=== PATIENT | male | born 1965 | race Hispanic/Latino ===

== ENCOUNTER 2016-09-15 03:37 | Inpatient (IN) | payer OTHER ==
[2016-09-15 03:49] VITALS: BMI 23.0
--- NOTE | 2016-09-15 04:06 | ED PDOC ---
Arrival/HPI - General Historian: Patient - History of Present Illness Time/Duration: Prior to Arrival Symptom Onset: Sudden Symptom Course: Worsening Context: Home <Hermila Alarcon - Last Filed: 09/15/16 06:05> <Sang Mederos - Last Filed: 09/15/16 06:29> - General Time Seen by Provider: 09/15/16 03:45 - History of Present Illness Narrative History of Present Illness (Text): 09/15/16 04:01 50 yo male with PMH of HIV/AIDS adn tachycardia presented to emergency department with abd pain. Patient states the pain started in the afternoon. He believed it to be due to constipation and took milk of magnesium. His last BM was yesterday morning. He reports 3 episodes of non bloody vomiting. He reports shortness of breath starting a few hours before arrival to emergency department. He also reports diaphoresis. He denies chest pain, headache, urinary symptoms. PMD: none (Hermila Alarcon) Past Medical History - Provider Review Nursing Documentation Reviewed: Yes - Infectious Disease Hx of Infectious Diseases: None - Cardiac Hx Hypertension: Yes Hx Hypotension: No - Pulmonary Hx Respiratory Disorders: Yes Hx Sleep Apnea: Yes - Neurological Other/Comment: Insomnia - HEENT Hx HEENT Disorder: Yes (eyeglases) - Hematological/Oncological Hx Blood Disorders: Yes Hx AIDS: Yes - Musculoskeletal/Rheumatological Hx Falls: No - Gastrointestinal Hx Gastroesophageal Reflux: Yes - Psychiatric Hx Substance Use: No - Surgical History Hx Orthopedic Surgery: Yes (left mininscus) - Anesthesia Hx Anesthesia Reactions: No Hx Malignant Hyperthermia: No <Hermila Alarcon - Last Filed: 09/15/16 06:05> Family/Social History - Physician Review Nursing Documentation Reviewed: Yes Family/Social History: CAD/LA (father) Smoking Status: Former Smoker Hx Alcohol Use: Yes Frequency of alcohol use: Socially Hx Substance Use: No <Hermila Alarcon - Last Filed: 09/15/16 06:05> Allergies/Home Meds <Hermila Alarcon - Last Filed: 09/15/16 06:05> <Sang Mederos - Last Filed: 09/15/16 06:29> Allergies/Adverse Reactions: Allergies No Known Allergies Allergy (Verified 01/31/16 22:30) Review of Systems - Review of Systems Constitutional: Normal, Fevers. absent: Fatigue Eyes: Normal. absent: Vision Changes ENT: Normal. absent: Sore Throat, Rhinorrhea, Sinus Congestion Respiratory: SOB. absent: Cough Cardiovascular: Normal. absent: Chest Pain, Palpitations, Edema, Calf Pain Gastrointestinal: Abdominal Pain, Constipation, Vomiting. absent: Diarrhea, Nausea Genitourinary Male: Normal. absent: Dysuria, Frequency Musculoskeletal: Normal. absent: Arthralgias, Myalgias Skin: Normal. absent: Rash, Pruritis Neurological: Normal. absent: Headache, Dizziness Endocrine: Diaphoresis Hemo/Lymphatic: Normal. absent: Easy Bleeding, Easy Bruising Psychiatric: Normal <Hermila Alarcon - Last Filed: 09/15/16 06:05> Physical Exam - Systems Exam Head: Present: Atraumatic, Normocephalic Pupils: Present: PERRL. No: Non-Reactive, Pinpoint Extroacular Muscles: Present: EOMI Conjunctiva: Present: Normal Mouth: Present: Moist Mucous Membranes Neck: Present: Normal Range of Motion Respiratory/Chest: Present: Clear to Auscultation, Good Air Exchange. No: Respiratory Distress, Accessory Muscle Use, Wheezes, Rales, Rhonchi, Tachypneic Cardiovascular: Present: Regular Rate and Rhythm, Normal S1, S2, Tachycardic. No: Murmurs, Bradycardic Abdomen: Present: Tenderness, Normal Bowel Sounds, Guarding. No: Distention, Peritoneal Signs Rectal: Present: Other (no fecal impaction ). No: Occult Blood, Rectal Tenderness, Gross Blood, Melena, Hemorrhoids Back: Present: Normal Inspection Upper Extremity: Present: Normal Inspection. No: Cyanosis, Edema, Tenderness, Swelling Lower Extremity: Present: Normal Inspection. No: Edema, Tenderness, Swelling Neurological: Present: GCS=15, CN II-XII Intact, Speech Normal Skin: Present: Warm, Dry, Normal Color, Diaphoretic. No: Rashes Psychiatric: Present: Alert, Oriented x 3, Normal Insight, Normal Concentration <Hermila Alarcon - Last Filed: 09/15/16 06:05> Medical Decision Making <Hermila Alarcon - Last Filed: 09/15/16 06:05> <Sang Mederos - Last Filed: 09/15/16 06:29> ED Course and Treatment: 09/15/16 04:15 Impression: 50 yo male with PMH of HIV/AIDS presented to emergency department with abd pain. Differential Diagnosis included but are not limited to: - SBO Plan: - CBC, CMP - lipase - CT abd/pelvis - zofran - Reassess and disposition Progress Notes: 09/15/16 05:53 - CT abd/pel FINDINGS: Limitations: Lack of intravenous contrast. Motion artifact - mild. Lower thorax: Hyperinflation of lung bases. Minimal atelectasis/scarring. Probable small hiatal hernia. ABDOMEN: Liver: Unremarkable. Gallbladder and bile ducts: No calcified stones. No ductal dilation. Pancreas: Unremarkable. No ductal dilation. Spleen: No splenomegaly. Adrenals: No mass. Kidneys and ureters: No obstructing stones. No hydronephrosis. Stomach and bowel: Multiple mild to moderately dilated loops of small bowel throughout abdomen. Stool formation within distal small bowel. Mild stranding/haziness within associated small bowel mesentery. Segmental areas of underdistention of LEFT colon. No definite mural thickening. Appendix: Normal caliber. No inflammation. PELVIS: Bladder: Unremarkable. No stones. Reproductive: Unremarkable as visualized. ABDOMEN and PELVIS: Intraperitoneal space: Trace free fluid within abdomen and pelvis. No free air. Bones/joints: No acute fracture. Soft tissues: Unremarkable. Vasculature: Mild atherosclerotic disease. No aneurysm. Lymph nodes: No pathologically enlarged lymph nodes. IMPRESSION: 1. Findings suggestive of small bowel obstruction. 2. Incidental/non-acute findings are described above. 09/15/16 06:05 - patient states that the pain is intermittent. Results of CT abd/pelvis was discussed with patient. - Spoke with medical librarian Dr. Bernabe and hospitalist Dr. Esquivel, patient is accepted for admission. Spoke with residential field manager, Dr. Plasencia, he agreed to evaluate patient. Patient was informed that he will be admitted, he is agreeable. (Hermila Alarcon) Patient seen and examined with resident. Came up with treatment and disposition plan with resident. (Sang Mederos) - Lab Interpretations Lab Results: 09/15/16 04:30 09/15/16 04:30 Lab Results 09/15/16 04:30: Sodium 139, Potassium 3.8, Chloride 95 L, Carbon Dioxide 28, Anion Gap 20, BUN 18, Creatinine 0.9, Est GFR ( Amer) > 60, Est GFR (Non- Af Amer) > 60, Random Glucose 138 H, Calcium 11.1 H, Total Bilirubin 1.3, AST 28 , ALT 34, Alkaline Phosphatase 108, Total Protein 9.6 H, Albumin 5.2 H, Globulin 4.3, Albumin/Globulin Ratio 1.2, Lipase 52 09/15/16 04:30: WBC 10.8 D, RBC 4.62, Hgb 16.6, Hct 46.8, MCV 101.3, MCH 35.9 H , MCHC 35.5, RDW 13.0, Plt Count 245, MPV 9.3, Gran % 72.3 H, Lymph % (Auto) 20.5 L, Wharton % (Auto) 6.7 H, Eos % (Auto) 0.3 L, Baso % (Auto) 0.2, Gran # 7.79 H, Lymph # 2.2, Wharton # 0.7 H, Eos # 0.0, Baso # 0.02 - RAD Interpretation Radiology Orders: 09/15/16 04:00 ABD & PELVIS W/O PO OR IV CONT [CT] Stat - Medication Orders Current Medication Orders: Piperacillin Sod/Tazobactam Sod (Zosyn 4.5 Gm In Ns 100ml) 4.5 gm in 100 mls @ 200 mls/hr IVPB STAT STA PRN Reason: Protocol Stop: 09/15/16 06:40 Discontinued Medications Ondansetron HCl (Zofran Inj) 4 mg IVP STAT STA Stop: 09/15/16 04:11 Last Admin: 09/15/16 04:39 Dose: 4 mg Disposition/Present on Arrival - Present on Arrival History of DVT/PE: No History of Uncontrolled Diabetes: No Urinary Catheter: No History of Decub. Ulcer: No History Surgical Site Infection Following: None <Hermila Alarcon - Last Filed: 09/15/16 06:05> - Present on Arrival Any Indicators Present on Arrival: No - Disposition Have Diagnosis and Disposition been Completed?: Yes Disposition Time: 06:28 Patient Plan: Admission <Sang Mederos - Last Filed: 09/15/16 06:29> - Disposition Diagnosis: Small bowel obstruction Disposition: HOSPITALIZED Condition: FAIR
[2016-09-15 04:49] LABS: ADD MANUAL DIFF? NO
[2016-09-15 04:59] LABS: BASO # 0.02 K/mm3 (0.0-2.0); BASO % 0.2 % (0.0-3.0); EOS % 0.3 % (1.5-5.0); GRAN # 7.79 (1.4-6.5); GRAN % 72.3 % (50.0-68.0); HEMATOCRIT 46.8 % (42.0-52.0); LYMPH # 2.2 (1.2-3.4); LYMPH % 20.5 % (22.0-35.0); MEAN CELL VOLUME 101.3 fL (80.0-105.0); MEAN CORPUSCULAR HEMOGLOBIN 35.9 pg (25.0-35.0); MEAN CORPUSCULAR HGB CONC 35.5 g/dl (31.0-37.0); MEAN PLATELET VOLUME 9.3 fl (7.0-11.0); MONO # 0.7 (0.1-0.6); MONO % 6.7 % (1.0-6.0); PLATELET COUNT 245 10^3/uL (120.0-450.0); WHITE BLOOD COUNT 10.8 10^3/ul (4.5-11.0)
[2016-09-15 05:08] LABS: ALB/GLOB RATIO 1.2 (1.1-1.8); ALKALINE PHOSPHATASE 108 U/L (38-133); ALT/SGPT 34 U/L (7-56); AST/SGOT 28 U/L (15-59); BILIRUBIN,TOTAL 1.3 mg/dL (0.2-1.3); BLOOD UREA NITROGEN 18 mg/dL (7-21); CALCIUM 11.1 mg/dL (8.4-10.5); CARBON DIOXIDE 28 mmol/L (21-33); CHLORIDE 95 mmol/L (98-107); GFR AFRICAN-AMERICAN > 60; GLUCOSE,RANDOM 138 mg/dL (70-110); LIPASE 52 U/L (23-300); POTASSIUM 3.8 mmol/L (3.6-5.0); SODIUM 139 mmol/L (132-148); TOTAL PROTEIN 9.6 g/dL (5.8-8.3)
[2016-09-15] MEDS ORDERED: Piperacill/Tazo 4.5gm in NS 4.5 GM/100 ML BAG IVPB STA (06:11)
[2016-09-15 07:10] LABS: INR 0.98 (0.93-1.08); PARTIAL THROMBOPLASTIN TIME 25.7 Seconds (23.7-30.8)
[2016-09-15] MEDS: Sodium Chloride 0.9% 1,000 ML IV SCH ×2 (09:06→18:01)
--- NOTE | 2016-09-15 09:39 | CP.PCM.CON ---
History of Present Illness - History of Present Illness History of Present Illness: Surgery: Dr. Herring CC: abdominal pain, n/v HPI: Patient is a 50 y/o HIV+ male who presents complaining of diffuse abdominal pain x1 day. He reports associated vomiting x4 episodes, nonbilious/ nonbloody. He states the pain started acutely and was sharp crampy in nature located in the center of his abdomen and radiating diffusely. He denies having pain like this in the past. He reports his last BM was 7am yesterday and was report as normal. He denies flatus since BM. He states his abdomen became distended as well. Patient reports diaphoresis but denies fevers, chest pain, SOB. Denies history of abdominal surgeries. Patient denies strange food types, recent out of country travel, or sick contacts. Per prior documentation, at last hospitalization in 01/2016, patient noncompliant with HIV medications due to insurance issues and last viral titer and CD4 count performed 2+ years ago. PMH: +HIV, PCP pneumonia PSH: bronchoscopy 01/2016 Social: lives at home with Review of Systems - Review of Systems All systems: reviewed and no additional remarkable complaints except Review of Systems: unless stated in HPI Past Patient History - Infectious Disease Hx of Infectious Diseases: None - Past Social History Smoking Status: Former Smoker - CARDIAC Hx Hypertension: Yes Hx Hypotension: No - PULMONARY Hx Respiratory Disorders: Yes Hx Sleep Apnea: Yes - NEUROLOGICAL Other/Comment: Insomnia - HEENT Hx HEENT Problems: Yes (eyeglases) - HEMATOLOGICAL/ONCOLOGICAL Hx Blood Disorders: Yes Hx AIDS: Yes - MUSCULOSKELETAL/RHEUMATOLOGICAL Hx Falls: No - GASTROINTESTINAL Hx Gastroesophageal Reflux: Yes - PSYCHIATRIC Hx Substance Use: No - SURGICAL HISTORY Hx Orthopedic Surgery: Yes (left mininscus) - ANESTHESIA Hx Anesthesia Reactions: No Hx Malignant Hyperthermia: No Meds Allergies/Adverse Reactions: Allergies Allergy/AdvReac Type Severity Reaction Status Date / Time No Known Allergies Allergy Verified 01/31/16 22:30 - Medications Medications: Current Medications Sodium Chloride (Sodium Chloride 0.9%) 1,000 mls @ 125 mls/hr IV .Q8H [facility] Last Admin: 09/15/16 09:06 Dose: 125 mls/hr Ondansetron HCl (Zofran Inj) 4 mg IVP Q6 PRN PRN Reason: Nausea/Vomiting Pantoprazole Sodium (Protonix Inj) 40 mg IVP DAILY [facility] Physical Exam - Constitutional Appears: Well, Non-toxic, No Acute Distress - Head Exam Head Exam: ATRAUMATIC, NORMOCEPHALIC - Eye Exam Eye Exam: EOMI, Normal appearance - ENT Exam ENT Exam: Mucous Membranes Moist - Respiratory Exam Respiratory Exam: NORMAL BREATHING PATTERN. absent: Respiratory Distress - Cardiovascular Exam Cardiovascular Exam: REGULAR RHYTHM. absent: Tachycardia - GI/Abdominal Exam GI & Abdominal Exam: Soft. absent: Distended, Guarding, Hernia, Rebound, Rigid , Tenderness - Extremities Exam Extremities exam: Positive for: normal inspection. Negative for: calf tenderness - Neurological Exam Neurological exam: Alert, Oriented x3 - Psychiatric Exam Psychiatric exam: Normal Affect, Normal Mood - Skin Skin Exam: Dry, Intact, Normal Color Results - Vital Signs Recent Vital Signs: Last Vital Signs Temp 98.1 F 09/15/16 08:27 Pulse 106 H 09/15/16 08:27 Resp 18 09/15/16 08:27 BP 132/101 H 09/15/16 08:27 Pulse Ox 100 09/15/16 08:27 - Labs Result Diagrams: 09/15/16 04:30 09/15/16 04:30 Assessment & Plan - Assessment and Plan (Free Text) Assessment: 50 y/o male w/ abdominal pain 2/2 ileus, partial SBO, possible underlying enteritis Plan: -NGT on LWS, if flatus ok to remove -IVF hydration -NPO -encourage OOB ambulation -serial abd exams -electrolyte replacement prn -possible ID consult for HIV+ evaluation, unclear on viral load/CD4 count status -d/w Dr. Herring [facility] PGY1
--- NOTE | 2016-09-15 10:49 | CT ---
PROCEDURE: CT Abdomen and Pelvis without intravenous contrast A-P HISTORY: COMPARISON: None. TECHNIQUE: Without contrast.. Contrast Dose: 0 Radiation dose: Total exam DLP = 400.55 mGy-cm. This CT exam was performed using one or more of the following dose reduction techniques: Automated exposure control, adjustment of the mA and/or kV according to patient size, and/or use of iterative reconstruction technique. FINDINGS: LOWER THORAX: Unremarkable. LIVER: Unremarkable. No gross lesion or ductal dilatation. GALLBLADDER AND BILE DUCTS: Cholelithiasis. No mural thickening or pericholecystic fluid. PANCREAS: Unremarkable. No gross lesion or ductal dilatation. SPLEEN: Unremarkable. ADRENALS: Unremarkable. No mass. KIDNEYS AND URETERS: Unremarkable. No hydronephrosis. No solid mass. VASCULATURE: Unremarkable. No aortic aneurysm. BOWEL: Dilatation of the entire small bowel to the level of the ileocecal valve where there is fecalization of the terminal ileal contents. Etiology for obstruction is not clear from this examination. Consider neoplasm or postoperative scar. APPENDIX: Unremarkable. Normal appendix. PERITONEUM: Unremarkable. No free fluid. No free air. LYMPH NODES: Unremarkable. No enlarged lymph nodes. BLADDER: Suboptimally distended. REPRODUCTIVE: Mild superior osteoarthritis of both hips, right greater. BONES: No acute fracture. OTHER FINDINGS: None. IMPRESSION: Findings consistent with mechanical small bowel obstruction at the level of the ileocecal valve. Etiology not clear from this examination. No evidence of bowel perforation. No other acute abnormality. Preliminary interpretation of this examination was reported by Heckyl at 5:46 a.m. on 09/15/2016. There is concurrence of this report with the preliminary interpretation.
[2016-09-15] MEDS: Phenol Topical 1.4% Throat Spray (180 ml) MT PRN ×4 (12:45→21:29)
--- NOTE | 2016-09-15 14:21 | CP.PCM.HP ---
<Star Morris - Last Filed: 09/15/16 14:13> History of Present Illness - History of Present Illness History of Present Illness: CC: nausea, vomiting, abdominal pain This is a 50 y/o male with hx HIV, on retroviral therapy presenting with complaints of nausea, vomiting and abdominal pain. Patient state she vomited twice yesterday. Described as nbnb. Patient also notes abdominal distension. He reports a BM prior to arrival which was normal. Denies diarrhea. Patient further denies fever, chills or sick contacts. He has no history of abdominal surgeries or hx of hernias. Patient is compliant with HIV therapy. He is followed as an outpatient by Dr. Real. Reports CD4 count - 364. Viral load is 400. PMH: HIV as noted above. PSH: knee meniscus repair, tonsillectomy, deviated septum repair Social hx: denies tobacco use or drug use. reports social alcohol use. Present on Admission - Present on Admission Any Indicators Present on Admission: No Review of Systems - Constitutional Constitutional: absent: Chills, Fever, Night Sweats - EENT Eyes: absent: Blurred Vision, Change in Vision Nose/Mouth/Throat: absent: Nasal Discharge, Nasal Obstruction - Cardiovascular Cardiovascular: absent: Chest Pain, Dyspnea, Leg Edema - Respiratory Respiratory: absent: Cough, Dyspnea - Gastrointestinal Gastrointestinal: Abdominal Pain, Bloating, Nausea, Vomiting. absent: Change in Bowel Habits, Constipation, Diarrhea, Melena - Genitourinary Genitourinary: absent: Dysuria, Hematuria - Musculoskeletal Musculoskeletal: absent: Back Pain, Neck Pain - Integumentary Integumentary: absent: Pruritus, Rash - Neurological Neurological: absent: Dizziness, Numbness, Focal Weakness - Psychiatric Psychiatric: absent: Anxiety, Depression - Endocrine Endocrine: absent: Excessive Sweating, Fatigue, Palpitations Past Patient History - Infectious Disease Hx of Infectious Diseases: None - Past Social History Smoking Status: Former Smoker - CARDIAC Hx Hypertension: Yes Hx Hypotension: No - PULMONARY Hx Respiratory Disorders: Yes Hx Sleep Apnea: Yes - NEUROLOGICAL Other/Comment: Insomnia - HEENT Hx HEENT Problems: Yes (eyeglases) - HEMATOLOGICAL/ONCOLOGICAL Hx Blood Disorders: Yes Hx AIDS: Yes - MUSCULOSKELETAL/RHEUMATOLOGICAL Hx Falls: No - GASTROINTESTINAL Hx Gastroesophageal Reflux: Yes - PSYCHIATRIC Hx Substance Use: No - SURGICAL HISTORY Hx Orthopedic Surgery: Yes (left mininscus) - ANESTHESIA Hx Anesthesia Reactions: No Hx Malignant Hyperthermia: No Meds Allergies/Adverse Reactions: Allergies Allergy/AdvReac Type Severity Reaction Status Date / Time No Known Allergies Allergy Verified 01/31/16 22:30 Physical Exam - Constitutional Appears: Non-toxic, No Acute Distress - Head Exam Head Exam: ATRAUMATIC, NORMOCEPHALIC - Eye Exam Eye Exam: EOMI, PERRL - ENT Exam ENT Exam: Mucous Membranes Dry - Neck Exam Neck exam: Positive for: Full Rom, Normal Inspection - Respiratory Exam Respiratory Exam: Clear to Auscultation Bilateral. absent: Rales, Rhonchi, Wheezes - Cardiovascular Exam Cardiovascular Exam: REGULAR RHYTHM, +S1, +S2 - GI/Abdominal Exam GI & Abdominal Exam: Normal Bowel Sounds, Soft, Tenderness (diffuse ) - Extremities Exam Extremities exam: Negative for: calf tenderness, pedal edema - Neurological Exam Neurological exam: Alert, Oriented x3 - Psychiatric Exam Psychiatric exam: Normal Affect, Normal Mood - Skin Skin Exam: Dry, Warm Results - Vital Signs Recent Vital Signs: Last Vital Signs Temp 98.1 F 09/15/16 08:27 Pulse 106 H 09/15/16 08:27 Resp 18 09/15/16 08:27 BP 132/101 H 09/15/16 08:27 Pulse Ox 100 09/15/16 08:27 - Labs Result Diagrams: 09/15/16 04:30 09/15/16 04:30 Assessment & Plan - Assessment and Plan (Free Text) Assessment: 50 y/o male with hx of HIV on anti-retroviral therapy presenting with nausea and vomiting with CT findings suspicious of SBO. Patient has not hx of abdominal surgery or hernias. NGT was placed with about 200cc gastic contents put out initially. Symptoms may also be related to possible gastroenteritis vs SBO. nausea, vomiting, abdominal pain 2/2 SBO vs gastroenteritis - NGT - zofran IV q6 prn - NPO - surgery is following - no intervention at this time - continue IVF - protonix IV daily hx HIV - patient is on RVT - CD4 364, viral load 400 - continue with care above. PPX - protonix - scds <Susie TRUONG,[place] - Last Filed: 09/15/16 17:20> Results - Vital Signs Recent Vital Signs: Last Vital Signs Temp 97.6 F 09/15/16 16:00 Pulse 106 H 09/15/16 16:00 Resp 20 09/15/16 16:00 BP 160/112 H 09/15/16 16:00 Pulse Ox 99 09/15/16 16:00 - Labs Result Diagrams: 09/15/16 04:30 09/15/16 04:30 Attending/Attestation - Attestation I have personally seen and examined this patient.: Yes I have fully participated in the care of the patient.: Yes I have reviewed all pertinent clinical information: Yes Notes (Text): 09/15/16 17:18 Patient was seen and examined with certified medical technician assistant. 50 y/o male with hx HIV, on retroviral therapy presenting with complaints of nausea, vomiting and abdominal pain.CT scan of abdomen and Pelvis showed small intestinal obstruction, he is aready improving after NGT was placed in.We will continue IV hydration and follow up electrolyte.Surgery is following. Continue GI and DVT prophylaxis. Will repeat abdominal X ray in 24 hour Management plan was discussed in detail with patient.Education was provided
[2016-09-15] MEDS ORDERED: ZIDOVUDINE PO SCH (14:52)
[2016-09-15] MEDS ORDERED: ABACAVIR PO SCH (14:52)
[2016-09-15] MEDS ORDERED: LAMIVUDINE PO SCH (14:52)
--- NOTE | 2016-09-15 15:21 | RAD ---
HISTORY: NG tube placement COMPARISON: 02/03/2016 FINDINGS: LUNGS: No active pulmonary disease. PLEURA: No significant pleural effusion identified, no pneumothorax apparent. CARDIOVASCULAR: Normal heart size. Nasogastric tube extends to left upper quadrant of abdomen. OSSEOUS STRUCTURES: No significant abnormalities. VISUALIZED UPPER ABDOMEN: Normal. OTHER FINDINGS: None. IMPRESSION: No active disease. Nasogastric tube noted in grossly appropriate position.
--- NOTE | 2016-09-15 15:40 | RAD ---
HISTORY: r/o SBO COMPARISON: No prior. FINDINGS: BOWEL: The nasogastric tube terminates in the stomach. There is mild gaseous distension of small bowel loops. There is moderate amount of stool in the colon. No free intraperitoneal air. BONES: Normal. OTHER FINDINGS: None. IMPRESSION: Mild gaseous distension of small bowel loops consistent with known small bowel obstruction. Constipation.
[2016-09-15] MEDS ORDERED: VIREAD PO SCH (16:30)
[2016-09-16 07:12] LABS: ADD MANUAL DIFF? NO
[2016-09-16 07:18] LABS: BASO # 0.02 K/mm3 (0.0-2.0); BASO % 0.3 % (0.0-3.0); EOS # 0.1 (0.0-0.7); GRAN # 4.04 (1.4-6.5); GRAN % 60.2 % (50.0-68.0); HEMATOCRIT 39.6 % (42.0-52.0); LYMPH # 2.1 (1.2-3.4); LYMPH % 31.7 % (22.0-35.0); MEAN CELL VOLUME 103.7 fL (80.0-105.0); MEAN CORPUSCULAR HEMOGLOBIN 34.8 pg (25.0-35.0); MEAN CORPUSCULAR HGB CONC 33.6 g/dl (31.0-37.0); MONO # 0.5 (0.1-0.6); MONO % 6.8 % (1.0-6.0); PLATELET COUNT 206 10^3/uL (120.0-450.0); RED CELL DISTRIBUTION WIDTH 13.3 % (11.5-14.5); WHITE BLOOD COUNT 6.7 10^3/ul (4.5-11.0)
[2016-09-16 08:47] LABS: ALB/GLOB RATIO 1.2 (1.1-1.8); ALKALINE PHOSPHATASE 69 U/L (38-133); ALT/SGPT 27 U/L (7-56); AST/SGOT 26 U/L (15-59); BILIRUBIN,TOTAL 0.8 mg/dL (0.2-1.3); BLOOD UREA NITROGEN 15 mg/dL (7-21); CARBON DIOXIDE 26 mmol/L (21-33); CHLORIDE 106 mmol/L (98-107); GFR AFRICAN-AMERICAN > 60; GLUCOSE,RANDOM 76 mg/dL (70-110); PHOSPHOROUS 3.4 mg/dL (2.5-4.5); POTASSIUM 4.2 mmol/L (3.6-5.0); SODIUM 142 mmol/L (132-148); TOTAL PROTEIN 6.8 g/dL (5.8-8.3)
--- NOTE | 2016-09-16 08:47 | CP.PCM.PN ---
Subjective - Date & Time of Evaluation Date of Evaluation: 09/16/16 Time of Evaluation: 08:44 - Subjective Subjective: Surgery: Dr. Santana Patient doing well today. No pain in the abdomen. Reports passing lots of flatus. No BM, n/v/f/c. He is ambulating in halls frequently. Objective - Vital Signs/Intake and Output Vital Signs (last 24 hours): Temp Pulse Resp BP Pulse Ox 98.2 F 101 H 20 160/112 H 99 09/15/16 22:00 09/15/16 22:00 09/15/16 22:00 09/15/16 16:00 09/15/16 16:00 Intake and Output: 09/16/16 09/16/16 06:59 18:59 Intake Total 0 Balance 0 - Medications Medications: Current Medications Abacavir Sulfate (Ziagen) 300 mg PO BID [facility] Last Admin: 09/15/16 17:55 Dose: 300 mg Sodium Chloride (Sodium Chloride 0.9%) 1,000 mls @ 125 mls/hr IV .Q8H [facility] Last Admin: 09/15/16 18:01 Dose: 125 mls/hr Lamivudine/Zidovudine (Combivir 150 Mg-300 Mg) 1 tab PO BID [facility] Last Admin: 09/15/16 17:51 Dose: 1 tab Ondansetron HCl (Zofran Inj) 4 mg IVP Q6 PRN PRN Reason: Nausea/Vomiting Pantoprazole Sodium (Protonix Inj) 40 mg IVP DAILY [facility] Last Admin: 09/15/16 11:47 Dose: 40 mg Phenol/Menthol (Phenaseptic 1.4% Throat [place]) 0 ml MT Q2H PRN PRN Reason: throat discomfort Last Admin: 09/15/16 21:29 Dose: 1 spr Tenofovir Disoproxil Fumarate (Viread) 300 mg PO DAILY [facility] - Labs Labs: 09/16/16 06:40 PT 10.6 Seconds (9.9-11.8) 09/15/16 04:30 INR 0.98 (0.93-1.08) 09/15/16 04:30 APTT 25.7 Seconds (23.7-30.8) 09/15/16 04:30 - Constitutional Appears: Non-toxic, No Acute Distress - Head Exam Head Exam: ATRAUMATIC, NORMOCEPHALIC - Eye Exam Eye Exam: EOMI, Normal appearance - ENT Exam ENT Exam: Mucous Membranes Moist - Respiratory Exam Respiratory Exam: NORMAL BREATHING PATTERN. absent: Respiratory Distress - Cardiovascular Exam Cardiovascular Exam: REGULAR RHYTHM. absent: Tachycardia - GI/Abdominal Exam GI & Abdominal Exam: Soft. absent: Distended, Guarding, Tenderness, Rebound - Neurological Exam Neurological Exam: Alert, Awake - Psychiatric Exam Psychiatric exam: Normal Affect, Normal Mood - Skin Skin Exam: Dry, Normal Color, Warm Assessment and Plan - Assessment and Plan (Free Text) Assessment: 50 y/o male w/ ileus possible partial SBO, possible enteritis-improved Plan: -NGT clamped this am, will most likely remove today and start clears -monitor for bowel function, nausea or vomiting -encourage OOB ambulation -medical management per primary -further recs per Dr. Esther Madrigal PGY1
[2016-09-16 08:49] LABS: CALCIUM 8.9 mg/dL (8.4-10.5)
[2016-09-16] MEDS ORDERED: Home Med 1 UNIT PO SCH (10:00)
--- NOTE | 2016-09-16 10:31 | CP.PCM.PN ---
<Jose R Baeza - Last Filed: 09/16/16 10:49> Subjective - Date & Time of Evaluation Date of Evaluation: 09/16/16 Time of Evaluation: 07:35 - Subjective Subjective: Pt was seen and examined at bedside. Pt states he is feeling better than yesterday. No acute complaints at this time and no acute or adverse events overnight as per nursing staff. Pt is passing flatus, however has not had a bm yet. Pt denied fever, chills, sob, chest pains, n/v/d/c or urinary symptoms. Objective - Vital Signs/Intake and Output Vital Signs (last 24 hours): Temp Pulse Resp BP Pulse Ox 98.6 F 102 H 22 150/101 H 99 09/16/16 06:00 09/16/16 06:00 09/16/16 06:00 09/16/16 06:00 09/16/16 06:00 Intake and Output: 09/16/16 09/16/16 06:59 18:59 Intake Total 0 Balance 0 - Medications Medications: Current Medications Abacavir Sulfate (Ziagen) 300 mg PO BID [facility] Last Admin: 09/16/16 09:10 Dose: 300 mg Sodium Chloride (Sodium Chloride 0.9%) 1,000 mls @ 125 mls/hr IV .Q8H [facility] Last Admin: 09/15/16 18:01 Dose: 125 mls/hr Lamivudine/Zidovudine (Combivir 150 Mg-300 Mg) 1 tab PO BID [facility] Last Admin: 09/16/16 09:10 Dose: 1 tab Ondansetron HCl (Zofran Inj) 4 mg IVP Q6 PRN PRN Reason: Nausea/Vomiting Pantoprazole Sodium (Protonix Inj) 40 mg IVP DAILY [facility] Last Admin: 09/16/16 09:12 Dose: 40 mg Phenol/Menthol (Phenaseptic 1.4% Throat [place]) 0 ml MT Q2H PRN PRN Reason: throat discomfort Last Admin: 09/15/16 21:29 Dose: 1 spr Tenofovir Disoproxil Fumarate (Viread) 300 mg PO DAILY [facility] Last Admin: 09/16/16 09:11 Dose: 300 mg - Labs Labs: 09/16/16 06:40 09/16/16 08:10 PT 10.6 Seconds (9.9-11.8) 09/15/16 04:30 INR 0.98 (0.93-1.08) 09/15/16 04:30 APTT 25.7 Seconds (23.7-30.8) 09/15/16 04:30 - Constitutional Appears: No Acute Distress - Head Exam Head Exam: ATRAUMATIC, NORMAL INSPECTION, NORMOCEPHALIC - Eye Exam Eye Exam: EOMI, Normal appearance, PERRL Pupil Exam: Fixed - ENT Exam Additional comments: NGT in place - Respiratory Exam Respiratory Exam: Clear to Ausculation Bilateral, NORMAL BREATHING PATTERN - Cardiovascular Exam Cardiovascular Exam: REGULAR RHYTHM, +S1, +S2. absent: Murmur - GI/Abdominal Exam GI & Abdominal Exam: Soft, Normal Bowel Sounds. absent: Tenderness - Extremities Exam Extremities Exam: Full ROM, Normal Capillary Refill, Normal Inspection. absent : Joint Swelling, Pedal Edema - Back Exam Back Exam: NORMAL INSPECTION - Neurological Exam Neurological Exam: Alert, Awake, CN II-XII Intact, Normal Gait, Oriented x3 - Psychiatric Exam Psychiatric exam: Normal Affect, Normal Mood - Skin Skin Exam: Dry, Intact, Normal Color, Warm Assessment and Plan - Assessment and Plan (Free Text) Assessment: 50 y/o male with hx of HIV on anti-retroviral therapy presenting with nausea and vomiting with CT findings suspicious of SBO. SBO vs gastroenteritis - NGT clamped at this time, as per Surgery will remove today and advance diet as tolerated - zofran IV q6 prn - surgery is following - no intervention at this time - continue IVF - protonix IV daily - encourage oob and ambulation as tolerated hx HIV - patient is on RVT - CD4 364, viral load 400 - continue with care above. PPX - protonix - scds Seen reviewed and discussed with Dr. Dinh Upon dc pt will fu with PMD/ID Dr. Real - pt has scheduled appt for 09/19/16 <Nicho Dinh - Last Filed: 09/16/16 15:03> Objective - Vital Signs/Intake and Output Vital Signs (last 24 hours): Temp Pulse Resp BP Pulse Ox 98.6 F 102 H 22 150/101 H 99 09/16/16 06:00 09/16/16 06:00 09/16/16 06:00 09/16/16 06:00 09/16/16 06:00 Intake and Output: 09/16/16 09/16/16 06:59 18:59 Intake Total 0 Balance 0 - Medications Medications: Current Medications Abacavir Sulfate (Ziagen) 300 mg PO BID [facility] Last Admin: 09/16/16 09:10 Dose: 300 mg Sodium Chloride (Sodium Chloride 0.9%) 1,000 mls @ 125 mls/hr IV .Q8H [facility] Last Admin: 09/15/16 18:01 Dose: 125 mls/hr Lamivudine/Zidovudine (Combivir 150 Mg-300 Mg) 1 tab PO BID [facility] Last Admin: 09/16/16 09:10 Dose: 1 tab Ondansetron HCl (Zofran Inj) 4 mg IVP Q6 PRN PRN Reason: Nausea/Vomiting Pantoprazole Sodium (Protonix Inj) 40 mg IVP DAILY [facility] Last Admin: 09/16/16 09:12 Dose: 40 mg Phenol/Menthol (Phenaseptic 1.4% Throat [place]) 0 ml MT Q2H PRN PRN Reason: throat discomfort Last Admin: 09/15/16 21:29 Dose: 1 spr Tenofovir Disoproxil Fumarate (Viread) 300 mg PO DAILY [facility] Last Admin: 09/16/16 09:11 Dose: 300 mg - Labs Labs: 09/16/16 06:40 09/16/16 08:10 PT 10.6 Seconds (9.9-11.8) 09/15/16 04:30 INR 0.98 (0.93-1.08) 09/15/16 04:30 APTT 25.7 Seconds (23.7-30.8) 09/15/16 04:30 Attending/Attestation - Attestation I have personally seen and examined this patient.: Yes I have fully participated in the care of the patient.: Yes I have reviewed all pertinent clinical information, including history, physical exam and plan: Yes Notes (Text): 09/16/16 15:01 hospitalist note; Patient was seen and examined with medical receptionist. patient is a 50 year old male with hx HIV, on retroviral therapy presenting with complaints of nausea, vomiting and abdominal pain.CT scan of abdomen and Pelvis showed small intestinal obstruction. continue NG tube. Patient was evaluated Dr. Herring surgery today. Patient is passing flatus. No bowel movement yet. We will continue IV hydration. Continue GI and DVT prophylaxis. upon discharge the patient will follow-up with PMD Dr. Real. 09/16/16 15:03
[2016-09-16] MEDS ORDERED: Sodium Chloride 0.9% 1,000 ML IV SCH (15:03)
[2016-09-17 07:27] LABS: ADD MANUAL DIFF? NO
[2016-09-17 07:58] LABS: ALB/GLOB RATIO 1.2 (1.1-1.8); ALKALINE PHOSPHATASE 67 U/L (38-133); ALT/SGPT 26 U/L (7-56); AST/SGOT 24 U/L (15-59); BILIRUBIN,TOTAL 0.6 mg/dL (0.2-1.3); BLOOD UREA NITROGEN 6 mg/dL (7-21); CALCIUM 8.9 mg/dL (8.4-10.5); CARBON DIOXIDE 25 mmol/L (21-33); CHLORIDE 104 mmol/L (95-110); GFR AFRICAN-AMERICAN > 60; GLUCOSE,RANDOM 85 mg/dL (70-110); POTASSIUM 3.8 mmol/L (3.6-5.0); SODIUM 137 mmol/L (132-148); TOTAL PROTEIN 6.6 g/dL (5.8-8.3)
[2016-09-17 08:00] LABS: BASO # 0.02 K/mm3 (0.0-2.0); BASO % 0.4 % (0.0-3.0); EOS # 0.1 (0.0-0.7); GRAN # 2.24 (1.4-6.5); GRAN % 45.1 % (50.0-68.0); HEMATOCRIT 36.8 % (42.0-52.0); LYMPH # 2.2 (1.2-3.4); LYMPH % 44.5 % (22.0-35.0); MEAN CELL VOLUME 102.8 fL (80.0-105.0); MEAN CORPUSCULAR HEMOGLOBIN 34.6 pg (25.0-35.0); MEAN CORPUSCULAR HGB CONC 33.7 g/dl (31.0-37.0); MONO # 0.4 (0.1-0.6); PLATELET COUNT 191 10^3/uL (120.0-450.0); RED CELL DISTRIBUTION WIDTH 12.9 % (11.5-14.5)
--- NOTE | 2016-09-17 08:21 | CP.PCM.PN ---
Subjective - Date & Time of Evaluation Date of Evaluation: 09/17/16 Time of Evaluation: 08:18 - Subjective Subjective: General Surgery Consult Note for Dr. Herring This 50M was seen and examined this AM at bedside. No acute events overnight. Patient reports tolerating liquid, passing gas having bowel movements. Objective - Vital Signs/Intake and Output Vital Signs (last 24 hours): Temp Pulse Resp BP Pulse Ox 98.6 F 102 H 22 150/101 H 99 09/16/16 06:00 09/16/16 06:00 09/16/16 06:00 09/16/16 06:00 09/16/16 06:00 Intake and Output: 09/17/16 09/17/16 06:59 18:59 Intake Total 1200 120 Output Total 0 Balance 1200 120 - Medications Medications: Current Medications Abacavir Sulfate (Ziagen) 300 mg PO BID [facility] Last Admin: 09/16/16 17:42 Dose: 300 mg Sodium Chloride (Sodium Chloride 0.9%) 1,000 mls @ 100 mls/hr IV .Q10H [facility] Last Admin: 09/16/16 15:33 Dose: 100 mls/hr Lamivudine/Zidovudine (Combivir 150 Mg-300 Mg) 1 tab PO BID [facility] Last Admin: 09/16/16 17:42 Dose: 1 tab Ondansetron HCl (Zofran Inj) 4 mg IVP Q6 PRN PRN Reason: Nausea/Vomiting Pantoprazole Sodium (Protonix Inj) 40 mg IVP DAILY [facility] Last Admin: 09/16/16 09:12 Dose: 40 mg Phenol/Menthol (Phenaseptic 1.4% Throat [place]) 0 ml MT Q2H PRN PRN Reason: throat discomfort Last Admin: 09/15/16 21:29 Dose: 1 spr Tenofovir Disoproxil Fumarate (Viread) 300 mg PO DAILY [facility] Last Admin: 09/16/16 09:11 Dose: 300 mg - Labs Labs: 09/17/16 07:00 09/17/16 07:00 PT 10.6 Seconds (9.9-11.8) 09/15/16 04:30 INR 0.98 (0.93-1.08) 09/15/16 04:30 APTT 25.7 Seconds (23.7-30.8) 09/15/16 04:30 - Constitutional Appears: Non-toxic, No Acute Distress - Head Exam Head Exam: ATRAUMATIC, NORMOCEPHALIC - Eye Exam Eye Exam: EOMI Pupil Exam: PERRL - ENT Exam ENT Exam: Mucous Membranes Moist - Respiratory Exam Respiratory Exam: NORMAL BREATHING PATTERN - Cardiovascular Exam Cardiovascular Exam: REGULAR RHYTHM - GI/Abdominal Exam GI & Abdominal Exam: Soft. absent: Distended, Firm, Guarding, Rigid, Tenderness - Extremities Exam Extremities Exam: Normal Inspection - Neurological Exam Neurological Exam: Alert, Awake - Psychiatric Exam Psychiatric exam: Normal Affect, Normal Mood - Skin Skin Exam: Dry, Intact Assessment and Plan - Assessment and Plan (Free Text) Assessment: This is a 50M with a PMH of AIDS with a resolved ileus/partial SBO Plan: - Vital sign stables labs WNL -Regular diet -monitor for bowel function, nausea or vomiting -encourage OOB ambulation -medical management per primary Will discuss with Dr. Nima Leroy PGY-9
[2016-09-17 09:19] VITALS: BP 134/97; PULSE 69; RESP 18; TEMP 98.5; O2SAT 96
--- NOTE | 2016-09-17 13:28 | CP.PCM.DIS ---
<Jose R Baeza - Last Filed: 09/17/16 17:45> Provider - Provider Date of Admission: 09/15/16 06:09 Attending physician: Nicho Dinh MD Consults: Surgery - Dr. Herring Time Spent in preparation of Discharge (in minutes): 45 Hospital Course - Lab Results Lab Results: Most Recent Lab Values WBC 5.0 10^3/ul (4.5-11.0) D 09/17/16 07:00 RBC 3.58 10^6/uL (3.5-6.1) 09/17/16 07:00 Hgb 12.4 gm/dL (14.0-18.0) L 09/17/16 07:00 Hct 36.8 % (42.0-52.0) L 09/17/16 07:00 MCV 102.8 fL (80.0-105.0) 09/17/16 07:00 MCH 34.6 pg (25.0-35.0) 09/17/16 07:00 MCHC 33.7 g/dl (31.0-37.0) 09/17/16 07:00 RDW 12.9 % (11.5-14.5) 09/17/16 07:00 Plt Count 191 10^3/uL (120.0-450.0) 09/17/16 07:00 MPV 9.0 fl (7.0-11.0) 09/17/16 07:00 Gran % 45.1 % (50.0-68.0) L 09/17/16 07:00 Lymph % (Auto) 44.5 % (22.0-35.0) H 09/17/16 07:00 Morris % (Auto) 8.0 % (1.0-6.0) H 09/17/16 07:00 Eos % (Auto) 2.0 % (1.5-5.0) 09/17/16 07:00 Baso % (Auto) 0.4 % (0.0-3.0) 09/17/16 07:00 Gran # 2.24 (1.4-6.5) 09/17/16 07:00 Lymph # 2.2 (1.2-3.4) 09/17/16 07:00 Morris # 0.4 (0.1-0.6) 09/17/16 07:00 Eos # 0.1 (0.0-0.7) 09/17/16 07:00 Baso # 0.02 K/mm3 (0.0-2.0) 09/17/16 07:00 PT 10.6 Seconds (9.9-11.8) 09/15/16 04:30 INR 0.98 (0.93-1.08) 09/15/16 04:30 APTT 25.7 Seconds (23.7-30.8) 09/15/16 04:30 Sodium 137 mmol/L (132-148) 09/17/16 07:00 Potassium 3.8 mmol/L (3.6-5.0) 09/17/16 07:00 Chloride 104 mmol/L (95-110) 09/17/16 07:00 Carbon Dioxide 25 mmol/L (21-33) 09/17/16 07:00 Anion Gap 12 (10-20) 09/17/16 07:00 BUN 6 mg/dL (7-21) L 09/17/16 07:00 Creatinine 0.7 mg/dL (0.5-1.4) 09/17/16 07:00 Est GFR ( Amer) > 60 09/17/16 07:00 Est GFR (Non-Af Amer) > 60 09/17/16 07:00 Random Glucose 85 mg/dL (70-110) 09/17/16 07:00 Calcium 8.9 mg/dL (8.4-10.5) 09/17/16 07:00 Phosphorus 3.4 mg/dL (2.5-4.5) 09/16/16 08:10 Magnesium 2.0 mg/dL (1.7-2.2) 09/16/16 08:10 Total Bilirubin 0.6 mg/dL (0.2-1.3) 09/17/16 07:00 AST 24 U/L (15-59) 09/17/16 07:00 ALT 26 U/L (7-56) 09/17/16 07:00 Alkaline Phosphatase 67 U/L (38-133) 09/17/16 07:00 Total Protein 6.6 g/dL (5.8-8.3) 09/17/16 07:00 Albumin 3.6 g/dL (3.0-4.8) 09/17/16 07:00 Globulin 3.0 gm/dL 09/17/16 07:00 Albumin/Globulin Ratio 1.2 (1.1-1.8) 09/17/16 07:00 Lipase 52 U/L (23-300) 09/15/16 04:30 - Hospital Course Hospital Course: 50 y/o male with PMHx of HIV, on retroviral therapy presenting with complaints of nausea, vomiting and abdominal pain. Patient state she vomited twice day prior to admission, it was nbnb. Patient also notes abdominal distension. He reports a BM prior to arrival which was normal. Pt presented with nausea and vomiting with CT findings suspicious of SBO. Patient has not hx of abdominal surgery or hernias. General surgery was consulted, Dr. Herring recommended NGT which drained approx 200cc gastic contents put out initially. Symptoms were thought to be related to possible gastroenteritis vs SBO. Pt started improving after NGT was placed in. Continued with IV hydration and encourage OOB. Pt had 3 bm during the past 24hr prior to discharge. NGT was removed, he tolerated regular diet and was moving his bowels and bladder regularly. Pt was ambulating without difficulty. Pt was feeling much improved. Upon dc pt is to fu with PMD Dr. Real, which pt already has appointment for 09/19/16. Discharge Exam - Head Exam Head Exam: ATRAUMATIC, NORMOCEPHALIC - Eye Exam Eye Exam: EOMI, Normal appearance, PERRL Pupil Exam: NORMAL ACCOMODATION, PERRL - ENT Exam ENT Exam: Mucous Membranes Moist - Neck Exam Neck exam: Full Rom - Respiratory Exam Respiratory Exam: Clear to PA & Lateral, NORMAL BREATHING PATTERN, UNREMARKABLE - Cardiovascular Exam Cardiovascular Exam: RRR, +S1, +S2 - GI/Abdominal Exam GI & Abdominal Exam: Normal Bowel Sounds, Soft. absent: Tenderness - Extremities Exam Extremities exam: normal inspection - Neurological Exam Neurological exam: Alert, CN II-XII Intact, Normal Gait, Oriented x3, Reflexes Normal - Psychiatric Exam Psychiatric exam: Normal Affect, Normal Mood - Skin Skin Exam: Dry, Intact, Normal Color, Warm Discharge Plan - Follow Up Plan Condition: FAIR Disposition: HOME/ ROUTINE Instructions: Constipation (DC), Pneumococcal Vaccine for Adults (DC) Additional Instructions: If you experience any worsening of pain, shortness of breath without relief, nausea/vomiting or chest pain call your medical doctor or go to the nearest emergency room. Follow up with PMD DR. Jose Manuel REAL. Avoid constipation Referrals: Jose Manuel Real MD [Family Provider] - <Nicho Dinh - Last Filed: 09/18/16 13:17> Provider - Provider Date of Admission: 09/15/16 06:09 Attending physician: Nicho Dinh MD Hospital Course - Lab Results Lab Results: Most Recent Lab Values WBC 5.0 10^3/ul (4.5-11.0) D 09/17/16 07:00 RBC 3.58 10^6/uL (3.5-6.1) 09/17/16 07:00 Hgb 12.4 gm/dL (14.0-18.0) L 09/17/16 07:00 Hct 36.8 % (42.0-52.0) L 09/17/16 07:00 MCV 102.8 fL (80.0-105.0) 09/17/16 07:00 MCH 34.6 pg (25.0-35.0) 09/17/16 07:00 MCHC 33.7 g/dl (31.0-37.0) 09/17/16 07:00 RDW 12.9 % (11.5-14.5) 09/17/16 07:00 Plt Count 191 10^3/uL (120.0-450.0) 09/17/16 07:00 MPV 9.0 fl (7.0-11.0) 09/17/16 07:00 Gran % 45.1 % (50.0-68.0) L 09/17/16 07:00 Lymph % (Auto) 44.5 % (22.0-35.0) H 09/17/16 07:00 Morris % (Auto) 8.0 % (1.0-6.0) H 09/17/16 07:00 Eos % (Auto) 2.0 % (1.5-5.0) 09/17/16 07:00 Baso % (Auto) 0.4 % (0.0-3.0) 09/17/16 07:00 Gran # 2.24 (1.4-6.5) 09/17/16 07:00 Lymph # 2.2 (1.2-3.4) 09/17/16 07:00 Morris # 0.4 (0.1-0.6) 09/17/16 07:00 Eos # 0.1 (0.0-0.7) 09/17/16 07:00 Baso # 0.02 K/mm3 (0.0-2.0) 09/17/16 07:00 PT 10.6 Seconds (9.9-11.8) 09/15/16 04:30 INR 0.98 (0.93-1.08) 09/15/16 04:30 APTT 25.7 Seconds (23.7-30.8) 09/15/16 04:30 Sodium 137 mmol/L (132-148) 09/17/16 07:00 Potassium 3.8 mmol/L (3.6-5.0) 09/17/16 07:00 Chloride 104 mmol/L (95-110) 09/17/16 07:00 Carbon Dioxide 25 mmol/L (21-33) 09/17/16 07:00 Anion Gap 12 (10-20) 09/17/16 07:00 BUN 6 mg/dL (7-21) L 09/17/16 07:00 Creatinine 0.7 mg/dL (0.5-1.4) 09/17/16 07:00 Est GFR ( Amer) > 60 09/17/16 07:00 Est GFR (Non-Af Amer) > 60 09/17/16 07:00 Random Glucose 85 mg/dL (70-110) 09/17/16 07:00 Calcium 8.9 mg/dL (8.4-10.5) 09/17/16 07:00 Phosphorus 3.4 mg/dL (2.5-4.5) 09/16/16 08:10 Magnesium 2.0 mg/dL (1.7-2.2) 09/16/16 08:10 Total Bilirubin 0.6 mg/dL (0.2-1.3) 09/17/16 07:00 AST 24 U/L (15-59) 09/17/16 07:00 ALT 26 U/L (7-56) 09/17/16 07:00 Alkaline Phosphatase 67 U/L (38-133) 09/17/16 07:00 Total Protein 6.6 g/dL (5.8-8.3) 09/17/16 07:00 Albumin 3.6 g/dL (3.0-4.8) 09/17/16 07:00 Globulin 3.0 gm/dL 09/17/16 07:00 Albumin/Globulin Ratio 1.2 (1.1-1.8) 09/17/16 07:00 Lipase 52 U/L (23-300) 09/15/16 04:30 Attending/Attestation - Attestation I have personally seen and examined this patient.: Yes I have fully participated in the care of the patient.: Yes I have reviewed all pertinent clinical information, including history, physical exam and plan: Yes Notes (Text): 09/18/16 12:06 hospitalist note; Patient was seen and examined with medical records custodian. patient is a 50 year old male with hx HIV, on retroviral therapy presenting with complaints of nausea, vomiting and abdominal pain.CT scan of abdomen and Pelvis showed small intestinal obstruction. Initially treated with NG tube suction. Patient was evaluated Dr. Herring surgery. Patient is tolerating diet. denies any nausea, vomiting. Had bowel movement today. We will discharge patient home. upon discharge the patient will follow-up with PMD Dr. Real. Diagnosis; small intestinal obstruction hiv 09/18/16 13:17
[2016-09-17] MEDS ORDERED: Pneumococcal 23-Valent Vaccine IM ONE (13:34)
== END 2016-09-17 14:28 | disposition home or self-care (01) | DRG 552 ==
LOC: ED 03:37 → ERH 06:09 → 3RNO 08:02
PROVIDERS: ADMIT Internal Medicine; ATTEND Internal Medicine
DX: K56.60 Unspecified intestinal obstruction (principal); B20 Human immunodeficiency virus [HIV] disease; R00.0 Tachycardia, unspecified; I10 Essential (primary) hypertension; K21.9 Gastro-esophageal reflux disease without esophagitis; Z91.19 Patient's noncompliance with other medical treatment and regimen; Z87.891 Personal history of nicotine dependence